=== PATIENT | male | born 1960 | race Caucasian/White ===

== ENCOUNTER → 2017-05-23 | Outpatient (CLI) | payer BC | LOC: GMAB 10:37 | PROVIDERS: ATTEND Family Medicine | DX: Z00.01 Encounter for general adult medical examination with abnormal findings (principal) ==

== ENCOUNTER → 2018-07-29 | Outpatient (CLI) | payer BC | LOC: GMAE 11:00 | PROVIDERS: ATTEND Family Medicine | DX: I10 Essential (primary) hypertension (principal); Z12.5 Encounter for screening for malignant neoplasm of prostate ==

== ENCOUNTER → 2018-10-09 | Outpatient (CLI) | payer BC, OTHER ==
--- NOTE | 2018-10-09 10:14 | CT ---
Procedure: CT LUNG SCREENING Exam Date: 10/09/2018.z Ordering Provider: Woodrow Boles Clinical Indication: HISTORY OF TOBACCO DEPENDENCY This patient meets eligibility criteria for low-dose CT lung cancer screening. Comparison: None. Technique: Using a multislice scanner, sequential helical axial imaging was obtained in the thorax, 2.5 mm thickness, 2.5 mm separation, from the level of the thoracic inlet through the lung bases without IV contrast. A low dose protocol was utilized: CTDI: 1.76 mGy. 120. kVp. 45 mA. DLP 63.82 mGy centimeters. 2D sagittal and coronal reconstructed images, 6.0 mm thickness, were obtained. This exam was performed according to our departmental dose optimization program which includes use of automated exposure control, adjustment of the mA and/or kV according to patient size and/or use of iterative reconstruction technique. Nodule measurements under 10 mm are given as mean value of 3 axes diameters. FINDINGS: Lungs and large airways: Bibasilar dependent atelectasis in the posterior recess of the right lower lobe more than left. 3 mm solid nodule subpleural right lower lobe on axial series 2, image 74. Minimal bilateral perihilar peribronchial wall thickening. 2 mm subpleural solid nodule partially calcified inferior lateral right middle lobe on axial image 80. Small pleural extension. Pleura and space: No effusion or pneumothorax bilaterally. Mediastinum and clotilde: evaluation limited by low dose technique and lack of IV contrast. No large lymph nodes or soft tissue masses. Heart and great vessels: Atherosclerotic calcifications aortic arch, descending thoracic aorta, proximal brachiocephalic vessels, and coronary arteries. Chest wall, lower neck, axillae: Evaluation also limited by same factors as described above. Normal sized lymph nodes. Upper abdomen: No free air or fluid in the included peritoneal space. Atherosclerotic calcifications aortic branches. Partial visualization due to glands spleen gallbladder pancreas stomach and liver. Osseous structures: Evaluation limited by low dose MIP technique. Minimal arthrosis in the right glenohumeral joint. Minimal arthrosis sternoclavicular joints. Diffuse ankylosis anterior thoracic spine. No lytic or blastic lesions. IMPRESSION: Nodules in the lungs are not significant due to size. No abnormal nodules or masses. No focal infiltrates. [facility] Best Practice recommendations: Please see below for Lung RADS category and FOLLOW-UP.* *Lung RADS category CATEGORY 2- Nodules with a very low likelihood (less than 1%) of becoming a clinically active cancer due to size or lack of growth. Nodules: Solid or part solid nodule(s) less than 6mm, new solid nodule less than 4mm. FOLLOW-UP: Continue annual screening with a Low Dose Chest CT in 12 months for re-evaluation. Electronically signed by: Adal Ahumada MD 10/09/2018 10:12 AM [facility]
== END ==
LOC: CT 07:55
PROVIDERS: ATTEND Family Medicine
DX: Z87.891 Personal history of nicotine dependence (principal)

== ENCOUNTER → 2019-06-05 | Outpatient (CLI) | payer BC ==
--- NOTE | 2019-06-05 16:38 | MRI ---
EXAM DESCRIPTION: Lumbar Spine w/o Contrast : Magnetic Resonance Imaging. CLINICAL HISTORY: WEDGE COMPRESSION FX OF 2ND VERTEBRA COMPARISON: Lumbar radiographs 29 May 2019. TECHNIQUE: Multiplanar, multiple standard sequences, non contrast MRI, lumbar spine. FINDINGS: L5-S1: The disc is well visualized on axial T2 series 501, image 3. Disc desiccation with mid and posterior disc space loss. Anterior bulging with endplate ridging. Posterior midline protrusion 5 mm impressing on the thecal sac. Bilaterally shortened pedicles. AP canal diameter 12 mm. Mild narrowing of the left subarticular recess. Hypertrophic facet arthrosis and flavum ligament thickening more left than right. Bilateral foraminal stenosis. L4-L5: Disc desiccation and posterior disc space loss. Small Schmorl's node inferior endplate. Anterior disc bulging with endplate ridging. Marked bilateral hypertrophic facet arthrosis and ligament thickening. Bilateral shortened pedicles. AP canal diameter 8 mm. Left subarticular recess stenosis and possible compromise left L5 nerve. Right foraminal stenosis and severe or borderline left foraminal stenosis. L3-L4: Marrow edema in the inferior L3 endplate diffusely more to the left of midline and also in the superior L4 endplate more to the left of midline. Marrow edema extending into the left L4 pedicle. This could represent compression injury more likely then acute spondylosis, with adjacent soft tissue edema. Anterior and posterior disc bulging. Trace retrolisthesis. Hypertrophic facet arthrosis and ligament thickening. Bilateral subarticular recess stenosis. Possible compromise bilateral L4 nerves. Bilateral shortened pedicles. AP canal diameter 8 mm. Moderate bilateral foraminal narrowing more on the left. L2-L3: Disc desiccation and disc space loss. Anterior disc bulge with endplate ridging. Disc desiccation with anterior bulging and endplate ridging. Posterior disc space loss and posterior diffuse protrusion more to the left of midline. Bilateral hypertrophic facet arthrosis and ligament thickening. Bilateral subarticular recess stenosis more on the left with probable compromise bilateral L3 nerves. Trace retrolisthesis. AP canal diameter 7 mm. Bilateral mild foraminal narrowing. L1-L2: Abnormal signal in the anterior superior L1 endplate with marrow edema anterior 1.5 cm extending into the superior body almost to the posterior cortex. No marrow edema in the pedicles. Anterior disc. Bulging and spurs. Posterior disc desiccation and tiny inferior extrusion abutting the thecal sac. Hypertrophic facet arthrosis and ligament thickening.. Shortened pedicles. AP canal diameter 9.4 mm. Foramina are patent. T12-L1: Disc desiccation and tiny posterior bulge. Small inferior T12 Schmorl's node. Posterior hypertrophic facet arthrosis and thickening of the ligaments. Shortening of the pedicles. Moderate canal narrowing. Foramina patent. Conus terminates mid L1. No significant scoliosis with minimal kyphosis T12-L2. Paravertebral soft tissues edema in the left side ligaments and soft tissues L2-L3 and L4.. Distal cord normal signal and caliber. Otherwise normal marrow signal in the remaining vertebral bodies and the posterior elements. IMPRESSION: 1. Multiple levels of bilateral pedicle shortening, hypertrophic facet arthrosis and flavum ligament thickening, anterior and posterior disc bulging. 2. Compression injury anterior superior L1 endplate with marrow edema extending to the posterior cortex but not involving the pedicles. Bilaterally shortened pedicles with tiny inferior L1-L2 extrusion. Mild central canal stenosis. 3.Compression injury more likely then spondylosis inferior L3 vertebral body and the superior L4 vertebral body more to the left of midline also involving the left L4 pedicle with soft tissue edema and possible soft tissue injury left paravertebral soft tissues L2-L4. 4.Posterior midline L5-S1 disc protrusion with moderate canal narrowing. Bilateral foraminal stenosis and possible compromise bilateral L5 nerve roots. 5. Multifactorial moderate central canal stenosis at L4-L5. No subarticular recess stenosis and possible compromise left L5 nerve. Bilateral foraminal stenosis. 6. Multifactorial moderate canal stenosis L3-L4. Subarticular recess stenosis and compromise bilateral L4 nerves. 7. Multifactorial moderate central canal stenosis L2-L3. Bilateral subarticular recess stenosis and compromise lateral L3 nerves. Electronically signed by: Adal Ahumada MD 06/05/2019 4:33 PM CDT
== END ==
LOC: MRI 10:52
PROVIDERS: ATTEND Family Medicine
DX: S32.020A Wedge compression fracture of second lumbar vertebra, initial encounter for closed fracture (principal); M48.062 Spinal stenosis, lumbar region with neurogenic claudication; M47.896 Other spondylosis, lumbar region; M51.27 Other intervertebral disc displacement, lumbosacral region

== ENCOUNTER → 2019-09-02 | Outpatient (CLI) | payer BC | LOC: GMAE 10:44 | PROVIDERS: ATTEND Family Medicine | DX: Z00.00 Encounter for general adult medical examination without abnormal findings (principal) ==

== ENCOUNTER 2019-10-17 05:46 | Day surgery (SDC) | payer BC ==
[2019-10-17] MEDS ORDERED: PROPOFOL 200 MG/20 ML VIAL IV ONE (07:00)
[2019-10-17] MEDS ORDERED: LIDOCAINE 1% 10 ML VIAL INJ ONE (07:00)
[2019-10-17] MEDS ORDERED: LACTATED RINGERS 1,000 ML ONE (07:03)
[2019-10-17] MEDS ORDERED: KETAMINE HCL 100 MG/ML VIAL ONE (09:09)
[2019-10-17 10:48] VITALS: BP 129/75; TEMP 97.1; O2SAT 98
--- NOTE | 2019-10-17 10:48 | OP ---
DATE OF PROCEDURE: 10/17/19 PREOPERATIVE DIAGNOSIS: 1. First screening colonoscopy. POSTOPERATIVE DIAGNOSIS: 1. Colonic polyps. PROCEDURE: 1. Colonoscopy with polyp excision times 2, 3 mm and 2 mm polyps at 10 and 20 cm. SURGEON: Jasson Rodas MD INDICATION: He has never had a colonoscopy, this is his first screening. PROCEDURE: General anesthesia was induced in the lateral position. Digital rectal exam was normal with no masses, no significant hemorrhoids. The colonoscope was introduced. The cecum was moderately difficult to traverse, but we got through safely. There was minimal diverticulosis. Ultimately, we advanced all the way to the cecum. The appendiceal orifice was photographed. Initially, the ileocecal valve appeared to have a lipomatous mass, but with peristalsis it appeared more as a bowel peristalsis and completely went away with varied peristalsis, so there was no mass there. Upon further withdrawal, the ascending, transverse and descending colon appeared completely normal with no evidence of inflammation or polyps. The sigmoid colon was tortuous, but was examined well. Again, at 20 and 10 cm, there two separate isolated polyps. The first one was a little bit larger and was removed with a snare completely and then the other, which was only about 6 to 8 mm was removed completely also. The patient tolerated the procedure and was awakened and taken to Recovery to be discharged. #[id number] [facility]
== END 2019-10-17 10:35 | disposition home or self-care (01) ==
LOC: AMB 05:46
PROVIDERS: ATTEND Surgery
DX: Z12.11 Encounter for screening for malignant neoplasm of colon (principal); K63.5 Polyp of colon; K57.30 Diverticulosis of large intestine without perforation or abscess without bleeding; R19.2 Visible peristalsis; E11.9 Type 2 diabetes mellitus without complications; I10 Essential (primary) hypertension; E78.00 Pure hypercholesterolemia, unspecified; Z87.891 Personal history of nicotine dependence; Z79.82 Long term (current) use of aspirin; Z79.899 Other long term (current) drug therapy
CPT/HCPCS: 00812; 36416; 45385; 82948; J3490; J7120